=== PATIENT | male | born 1950 ===

== ENCOUNTER 2021-10-11 14:45 | Inpatient (IN) ==
[2021-10-11 15:26] LABS: ABS Basophils 0.1 10^3/ul (0-0.2); ABS Eosinophils 0.1 10^3/ul (0-0.6); ABS Lymphocytes 2.1 10^3/ul (1.0-4.8); ABS Monocytes 0.7 10^3/ul (0-0.8); ABS Neutrophils 7.1 10^3/ul (1.5-7.7); Eosinophil % 1.3 %; Hematocrit 49 % (42-52); Lymphocyte % 20.8 %; Mean Corpuscular HGB Conc 33 g/dL (31-36); Mean Corpuscular Hemoglobin 32 pg (27-31); Mean Corpuscular Volume 99 fL (80-94); Mean Platelet Volume 9.8 fL (7.4-10.4); Platelet Count 185 10^3/uL (150-450); Red Blood Count 4.94 10^6 /uL (4.18-5.48); Red Cell Distribution Width 15 % (10-15); White Blood Count 10.1 10^3/uL (3.5-10.8)
[2021-10-11 15:31] LABS: INR 1.5 (0.86-1.15)
[2021-10-11 15:47] LABS: ALT 122 U/L (7-52); AST 87 U/L (13-39); Albumin 3.8 g/dL (3.2-5.2); Albumin/Globulin Ratio 1.3 (1-3); Alkaline Phosphatase 134 U/L (35-149); Anion Gap 12 mmol/L (2-11); Blood Urea Nitrogen 24 mg/dL (6-24); CO2 Carbon Dioxide 21 mmol/L (22-32); Chloride 104 mmol/L (101-111); Globulin 2.9 g/dL (2-4); Glucose 149 mg/dL (70-100); Potassium 4.3 mmol/L (3.5-5.0); Sodium 137 mmol/L (135-145); Total Protein 6.7 g/dL (6.4-8.9)
[2021-10-11 16:03] LABS: Troponin I 0.05 ng/mL (<0.03)
[2021-10-11 16:37] LABS: Rapid COVID-19 Molecular Undetected (Undetected)
[2021-10-11 17:48] LABS: Magnesium 1.9 mg/dL (1.9-2.7)
[2021-10-11] MEDS ORDERED: Furosemide 40 mg/4 ml IV VIAL IV ONE (18:07)
[2021-10-11 19:03] LABS: Troponin I 0.06 ng/mL (<0.03)
[2021-10-11] MEDS ORDERED: Al Hydrox/Mg Hydrox/Simet LIQ 30 ML UDC PO PRN (21:02)
[2021-10-11] MEDS ORDERED: Furosemide 40 mg/4 ml IV VIAL IV SLOW PU ONE (21:07)
[2021-10-11 22:06] LABS: Troponin I 0.05 ng/mL (<0.03)
[2021-10-11] MEDS: Enoxaparin 40 MG/0.4 ML SYR SUBCUT SCH (22:25)
[2021-10-11 23:18] LABS: TSH Ultra Thyroid Stim Horm 2.92 mcIU/mL (0.34-5.60)
[2021-10-12] MEDS ORDERED: Senna TAB 8.6 mg TAB PO PRN (00:48)
[2021-10-12] MEDS ORDERED: Insulin NPH 100 units/ml SUBCUT SCH (07:00)
[2021-10-12] MEDS ORDERED: Furosemide 20 mg/2 ml IV VIAL IV ONE (08:23)
[2021-10-12] MEDS: Aspirin EC 81 mg TAB.EC (enteric coated) PO SCH (08:47)
[2021-10-12] MEDS: Insulin NPH 100 units/ml SUBCUT SCH ×2 (08:55→17:57)
[2021-10-12] MEDS: Fluticasone NASAL SPRAY 50MCG 16 gm SPRAY BTL INTRANASAL SCH (09:00)
[2021-10-12] MEDS ORDERED: Fluticasone NASAL SPRAY 50MCG 16 gm SPRAY BTL INTRANASAL SCH (09:00)
[2021-10-12] MEDS ORDERED: Pravastatin 40 mg TAB (NF) PO SCH (09:00)
[2021-10-12 09:52] LABS: ABS Basophils 0.1 10^3/ul (0-0.2); ABS Eosinophils 0.1 10^3/ul (0-0.6); ABS Lymphocytes 1.1 10^3/ul (1.0-4.8); ABS Monocytes 0.8 10^3/ul (0-0.8); Eosinophil % 0.7 %; Hematocrit 46 % (42-52); Hemoglobin 15.1 g/dL (14.0-18.0); Lymphocyte % 12.1 %; Mean Corpuscular HGB Conc 33 g/dL (31-36); Mean Corpuscular Hemoglobin 32 pg (27-31); Mean Corpuscular Volume 97 fL (80-94); Mean Platelet Volume 9.9 fL (7.4-10.4); Nucleated Red Blood Cells % 0.1; Platelet Count 176 10^3/uL (150-450); Red Blood Count 4.68 10^6 /uL (4.18-5.48); Red Cell Distribution Width 15 % (10-15); White Blood Count 8.9 10^3/uL (3.5-10.8)
[2021-10-12 10:09] LABS: ALT 158 U/L (7-52); AST 128 U/L (13-39); Albumin 3.7 g/dL (3.2-5.2); Albumin/Globulin Ratio 1.2 (1-3); Alkaline Phosphatase 128 U/L (35-149); Anion Gap 14 mmol/L (2-11); Blood Urea Nitrogen 29 mg/dL (6-24); CO2 Carbon Dioxide 22 mmol/L (22-32); Calcium 9.1 mg/dL (8.6-10.3); Chloride 101 mmol/L (101-111); Glucose 179 mg/dL (70-100); Magnesium 1.8 mg/dL (1.9-2.7); Sodium 137 mmol/L (135-145); Total Protein 6.7 g/dL (6.4-8.9)
[2021-10-12] MEDS: Lidocaine PATCH 5% PATCH TRANSDERM SCH (12:53)
[2021-10-12 13:12] LABS: % Iron Saturation 24 % (15-55); Ferritin 97.7 ng/mL (24-336); Iron 69 ug/dL (50-212); Total Iron Binding Capacity 288 mcg/dL (250-450); Transferrin 206 mg/dL (203-362); Unsaturated Iron Binding < 273 ug/dL
[2021-10-12] MEDS: Enoxaparin 40 MG/0.4 ML SYR SUBCUT SCH (21:28)
[2021-10-12] MEDS: Lidocaine Patch REMOVE PATCH PATCH OFF SCH (21:30)
[2021-10-13] MEDS ORDERED: Dextrose 50% Syringe 50 ml 25 GM/50 ML SYRINGE IV PUSH PRN (02:37)
[2021-10-13] MEDS: Dextrose 50% Syringe 50 ml 25 GM/50 ML SYRINGE IV PUSH PRN ×3 (02:45→16:11)
[2021-10-13 06:41] LABS: Hematocrit 46 % (42-52); Hemoglobin 15.4 g/dL (14.0-18.0); Mean Corpuscular HGB Conc 33 g/dL (31-36); Mean Corpuscular Hemoglobin 32 pg (27-31); Mean Corpuscular Volume 98 fL (80-94); Platelet Count 166 10^3/uL (150-450); Red Blood Count 4.75 10^6 /uL (4.18-5.48); Red Cell Distribution Width 15 % (10-15); White Blood Count 9.7 10^3/uL (3.5-10.8)
[2021-10-13 07:05] LABS: Albumin 3.7 g/dL (3.2-5.2); Albumin/Globulin Ratio 1.3 (1-3); Calcium 9.4 mg/dL (8.6-10.3); Direct Bilirubin 0.5 mg/dL (0.03-0.18); Globulin 2.8 g/dL (2-4); Indirect Bilirubin 1.1 mg/dL (0.3-1.0); Potassium 4.1 mmol/L (3.5-5.0); Total Bilirubin 1.6 mg/dL (0.2-1.0); Total Protein 6.5 g/dL (6.4-8.9)
[2021-10-13] MEDS: Insulin NPH 100 units/ml SUBCUT SCH (07:37)
[2021-10-13] MEDS: Lidocaine PATCH 5% PATCH TRANSDERM SCH (08:52)
[2021-10-13] MEDS: Aspirin EC 81 mg TAB.EC (enteric coated) PO SCH (08:55)
[2021-10-13] MEDS: Fluticasone NASAL SPRAY 50MCG 16 gm SPRAY BTL INTRANASAL SCH (08:56)
[2021-10-13] MEDS ORDERED: Bumetanide IV 0.25 MG/ML 4 ml VIAL (1 mg) SLOW PUSH ONE (10:41)
[2021-10-13 13:52] LABS: Hepatitis B Surface Antigen Nonreactive (Nonreactive)
[2021-10-13 13:57] LABS: Hepatitis A Ab IgM Negative (Negative); Hepatitis B Core IgM Nonreactive (Nonreactive)
[2021-10-13 14:09] LABS: Hepatitis C Antibody Negative (Negative)
[2021-10-13] MEDS ORDERED: Insulin NPH 100 units/ml SUBCUT SCH ×2 (15:00)
[2021-10-13] MEDS: Lidocaine Patch REMOVE PATCH PATCH OFF SCH (21:49)
[2021-10-13] MEDS: Enoxaparin 40 MG/0.4 ML SYR SUBCUT SCH (21:57)
[2021-10-14] MEDS: Dextrose 50% Syringe 50 ml 25 GM/50 ML SYRINGE IV PUSH PRN (03:46)
[2021-10-14] MEDS ORDERED: Furosemide 20 mg/2 ml IV VIAL ONE (03:59)
[2021-10-14] MEDS ORDERED: Furosemide 40 mg/4 ml IV VIAL IV SLOW PU ONE (04:08)
[2021-10-14 07:08] LABS: Albumin 3.6 g/dL (3.2-5.2); Calcium 9.5 mg/dL (8.6-10.3); Chloride 101 mmol/L (101-111); Magnesium 2.5 mg/dL (1.9-2.7); Sodium 134 mmol/L (135-145)
[2021-10-14] MEDS ORDERED: Norepinephrine 16MCG/ML IVPRE 4,000 MCG/250 ML BAG IV ONE (07:10)
[2021-10-14] MEDS: Norepinephrine 16MCG/ML IVPRE 4,000 MCG/250 ML BAG IV SCH (07:10)
[2021-10-14 07:11] LABS: Hematocrit 53 % (42-52); Mean Corpuscular HGB Conc 32 g/dL (31-36); Mean Corpuscular Hemoglobin 32 pg (27-31); Mean Corpuscular Volume 101 fL (80-94); Mean Platelet Volume 10.3 fL (7.4-10.4); Platelet Count 117 10^3/uL (150-450); Red Cell Distribution Width 16 % (10-15)
[2021-10-14 07:14] LABS: Albumin/Globulin Ratio 1.2 (1-3); Alkaline Phosphatase 142 U/L (35-149); Blood Urea Nitrogen 45 mg/dL (6-24); Glucose 99 mg/dL (70-100); Total Protein 6.6 g/dL (6.4-8.9)
[2021-10-14 07:15] LABS: CO2 Carbon Dioxide 11 mmol/L (22-32)
[2021-10-14 07:31] LABS: PCO2 Arterial 25 mmHg (35-45); PO2 Arterial 224 mmHg (80-100)
[2021-10-14 08:43] LABS: Anion Gap 22 mmol/L (2-11)
[2021-10-14] MEDS ORDERED: Digoxin IV 0.5 MG/2 ML AMP (0.25 MG/ML) IV SLOW PU ONE (09:10)
[2021-10-14] MEDS: Aspirin EC 81 mg TAB.EC (enteric coated) PO SCH (09:44)
[2021-10-14] MEDS ORDERED: Lidocaine PATCH 5% PATCH ONE (10:05)
[2021-10-14] MEDS: Lidocaine PATCH 5% PATCH TRANSDERM SCH (10:07)
[2021-10-14] MEDS: Fluticasone NASAL SPRAY 50MCG 16 gm SPRAY BTL INTRANASAL SCH (10:07)
[2021-10-14 11:12] LABS: Rapid COVID-19 Molecular Undetected (Undetected)
[2021-10-14 11:32] LABS: Magnesium 2.6 mg/dL (1.9-2.7)
[2021-10-14 11:52] LABS: ALT 1206 U/L (7-52)
[2021-10-14] MEDS ORDERED: Enoxaparin 80 MG/0.8 ML SYR SUBCUT SCH (12:00)
[2021-10-14] MEDS ORDERED: Iohexol 350 (CONTRAST) 200 ML MDV IV ONE ×2 (12:56→13:35)
[2021-10-14] MEDS ORDERED: Midazolam 5 mg/5 ml VIAL 1 mg/ml 5 ml VIAL (5 mg) ONE (12:56)
[2021-10-14] MEDS ORDERED: Lidocaine 1% VIAL 10 MG/ML VIAL ONE (12:56)
[2021-10-14] MEDS ORDERED: fentaNYL 100 mcg/2 ml 50 MCG/ML VIAL ONE (12:56)
[2021-10-14] MEDS ORDERED: HEPARIN 2 UNIT/ML IV ONE (12:56)
[2021-10-14] MEDS ORDERED: Heparin 1,000 UNIT/ML 10 ml (10,000 UNITS) CATHLAB/DIALYSIS ONE (12:57)
[2021-10-14 14:09] LABS: POC SO2 99 %
[2021-10-14 14:09] LABS: POC SO2 56 %
[2021-10-14] MEDS ORDERED: NS 0.9% 250 ml 250 ML IV ONE (14:28)
[2021-10-14] MEDS ORDERED: Milrinone 20,000 MCG/100 ML BAG IV SCH (15:00)
[2021-10-14] MEDS ORDERED: Heparin DRIP 25,000 UNITS BAG 25,000 UNITS/500 ML BAG IV SCH (16:45)
[2021-10-14] MEDS ORDERED: Heparin 5000 UNITS/ML 1 mL VIAL IV SCH (17:00)
[2021-10-14] MEDS ORDERED: NS 0.9% 250 ML BAG IV ONE (18:00)
[2021-10-14 18:32] LABS: ABS Basophils 0.1 10^3/ul (0-0.2); ABS Lymphocytes 0.7 10^3/ul (1.0-4.8); ABS Monocytes 1.4 10^3/ul (0-0.8); ABS Neutrophils 15.6 10^3/ul (1.5-7.7); Hematocrit 46 % (42-52); Hemoglobin 15.1 g/dL (14.0-18.0); Lymphocyte % 3.8 %; Mean Corpuscular HGB Conc 33 g/dL (31-36); Mean Corpuscular Hemoglobin 33 pg (27-31); Mean Corpuscular Volume 99 fL (80-94); Mean Platelet Volume 10.8 fL (7.4-10.4); Nucleated Red Blood Cells % 0.1; Platelet Count 102 10^3/uL (150-450); Red Blood Count 4.63 10^6 /uL (4.18-5.48); Red Cell Distribution Width 15 % (10-15); White Blood Count 17.7 10^3/uL (3.5-10.8)
[2021-10-14 18:59] LABS: Albumin 3.4 g/dL (3.2-5.2); Albumin/Globulin Ratio 1.5 (1-3); Alkaline Phosphatase 126 U/L (35-149); Blood Urea Nitrogen 52 mg/dL (6-24); CO2 Carbon Dioxide 20 mmol/L (22-32); Calcium 8.7 mg/dL (8.6-10.3); Chloride 98 mmol/L (101-111); Globulin 2.3 g/dL (2-4); Glucose 117 mg/dL (70-100); Sodium 134 mmol/L (135-145); Total Protein 5.7 g/dL (6.4-8.9)
[2021-10-14 19:00] LABS: Anion Gap 16 mmol/L (2-11); Potassium 5.4 mmol/L (3.5-5.0)
[2021-10-14 19:01] LABS: Troponin I 0.63 ng/mL (<0.03)
[2021-10-14 19:12] LABS: ALT 2340 U/L (7-52); AST 3739 U/L (13-39)
[2021-10-14] MEDS ORDERED: Zosyn per Pharmacy NOTE FOLLOW UP SCH (20:00)
[2021-10-14] MEDS ORDERED: ZOSYN 3.375 GM x ONE DOSE over 30 miuntes IV (20:00)
[2021-10-14] MEDS ORDERED: Enoxaparin 30 MG/0.3 ML SYR SUBCUT SCH (21:00)
[2021-10-14] MEDS: Lidocaine Patch REMOVE PATCH PATCH OFF SCH (22:45)
[2021-10-15] MEDS ORDERED: ZOSYN 3.375 GM Q8H per EXTENDED INFUSION IV SCH (01:00)
[2021-10-15] MEDS: Norepinephrine 16MCG/ML IVPRE 4,000 MCG/250 ML BAG IV SCH (02:40)
[2021-10-15 04:56] LABS: ABS Lymphocytes 0.8 10^3/ul (1.0-4.8); ABS Monocytes 1.2 10^3/ul (0-0.8); ABS Neutrophils 17.6 10^3/ul (1.5-7.7); ABS Nucleated RBC 0.1 10^3/ul; Hematocrit 47 % (42-52); Hemoglobin 15.3 g/dL (14.0-18.0); Mean Corpuscular HGB Conc 33 g/dL (31-36); Mean Corpuscular Hemoglobin 32 pg (27-31); Mean Corpuscular Volume 98 fL (80-94); Mean Platelet Volume 10.5 fL (7.4-10.4); Nucleated Red Blood Cells % 0.3; Platelet Count 121 10^3/uL (150-450); Red Blood Count 4.73 10^6 /uL (4.18-5.48); Red Cell Distribution Width 15 % (10-15); White Blood Count 19.6 10^3/uL (3.5-10.8)
[2021-10-15 05:12] LABS: Albumin 3.2 g/dL (3.2-5.2); Albumin/Globulin Ratio 1.3 (1-3); Calcium 8.1 mg/dL (8.6-10.3); Globulin 2.4 g/dL (2-4); Magnesium 2.2 mg/dL (1.9-2.7); Total Protein 5.6 g/dL (6.4-8.9)
[2021-10-15] MEDS ORDERED: Dextrose 50% Syringe 50 ml 25 GM/50 ML SYRINGE IV PUSH ONE (08:19)
[2021-10-15 09:23] VITALS: BP 106/48
== END 2021-10-15 08:30 | disposition short-term general hospital (02) | DRG 270 ==
LOC: ED 14:45 → MED 10-12 03:22 → SUATTDRO 10-12 03:22 → ICU 10-14 07:06
PROVIDERS: ADMIT Hospitalist; ATTEND Internal Medicine